=== PATIENT | female | born 1945 | race Caucasian/White ===

== ENCOUNTER 2018-03-25 08:42 | Outpatient (CLI) | payer MEDICARE, SELFPAY ==
--- NOTE | 2018-03-25 06:00 | DI.REPORT_ITS ---
SYMPTOM/DIAGNOSIS: LUMBAR SPONDYLOSIS C-ARM FLUOROSCOPY: 03/25 Fluoroscopy Time: 55.9s C-arm fluoroscopy was utilized by Dr. Fofana during reported lumbar medial branch block. Hard copies show needle placement and injection bilaterally at what appear to be the L3-4, L4-5 and L5-S1 levels.
[2018-03-25 08:55] VITALS: BP 151/81; PULSE 91; RESP 16; TEMP 36.6; O2SAT 97
[2018-03-25] MEDS: Omnipaque 240 MG/ML 50 ML BTL IJ (09:41)
--- NOTE | 2018-03-25 09:56 | PDOC.PAIN_ITS ---
Date of Service: 03/25/18 Time of Service: 09:54 Pain Clinic Procedure Note Lumbar/Sacral Medial Branch Blocks #1 to the bilateral L3-L5DR VICKEY HUMPHRIES has been referred [facility] for lumbar/ sacral medial branch blocks. COMMENTS: I did review Ms. Huggins's note. DX: Lumbar spondylosis without myelopathy Patient was interviewed and the medical record reviewed. There were no medical , pharmacologic, radiographic or other structural contraindications to attempting fluoroscopically guided local anesthetic lumbar/sacral medial branch blocks. Risks and expected side effects as well as potential benefit of the procedure were reviewed and voiced concerns addressed. The printed consent form was signed and witnessed. Standard time-out procedure was performed. Patient was placed in the prone position on the fluoroscopy table and automated blood pressure cuff and pulse oximeter applied. The skin entry points for approaching the anatomic target points of the segmental medial branches of bilateral L3-L5DR were identified with anfluoroscopy and marked. Following thorough Chlorhexadine preparation of the skin and draping and 1% lidocaine infiltration of the skin entry points and subcutaneous tissues, a 22 gauge spinal needle was placed under fluoroscopic guidance down on to the target point for each respective segmental medial branch.Position was confirmed in A/P, oblique and lateral views with 0.25ml of omnipaque 240. I next injected .5ml 0.5% Bupivacaine to each segmental branch. Vital signs were stable throughout the procedure and were as recorded in the docflowsheet by the nursing staff. Follow up plans and appointments were discussed and was instructed to keep careful note of how the usual pain was modified by these injections. Specifically was asked to keep a pain diary for the next 24 hours using a numeric pain scale of 0-10 and report these results at the follow-up visit. Post procedure instruction was given as documented in the nursing documentation and having met discharge criteria. Patient was [facility] from the [facility]. Based on the medial branches blocked today, if the patient has adequate relief and we are able to proceed to radiofrequency ablation, the treatment should result in the denervation of the bilateral L4-L5 and L5-S1 FACET JOINTS. We would expect to denervate a total of 4 facets during the radiofrequency ablation. COMMENTS: She will call back with her 1-4 hour post-procedure pain scores. CC: Fercho Ramos
[2018-03-25] MEDS: Bupivacaine 0.5% Pres-Free 30 ML VIAL IJ (10:04)
[2018-03-25 10:05] VITALS: BP 147/72; PULSE 82; RESP 12; O2SAT 99
== END 2018-03-25 08:43 ==
PROVIDERS: PCP Internal Medicine; Visit Provider Preventive Medicine Occupational Medicine
DX: M47.816 Spondylosis without myelopathy or radiculopathy, lumbar region (principal)
CPT/HCPCS: 64493; 64494; 72100; Q9967

== ENCOUNTER 2018-06-10 13:39 | Outpatient (REF) | payer MEDICARE, SELFPAY ==
[2018-06-10 19:01] LABS: HCT 40.6 % (36.0-46.0); HGB 13.1 g/dL (12.0-15.5); Mean Corp. HGB Concentration 32.3 g/dL (32.0-36.0); Mean Corpuscular Hemoglobin 32.6 pg (27.0-33.0); Platelet Count 289 x1000/uL (130-400); RBC 4.02 m/cumm (4.00-5.20); White Blood Cell Count 11.28 k/cumm (4.4-10.8)
[2018-06-10 19:32] LABS: Anion Gap 8.9 mmol/L (3-11); BUN 27 mg/dL (7-18); CO2 30.1 mmol/L (21.0-32.0); CREATININE 1.24 mg/dL (0.55-1.02); Calcium 9.2 mg/dL (8.5-10.1); Chloride 102 mmol/L (98-107); ESR 15 MM/HR (0-30); Estimated GFR 42.76 (mL/min/1.73m2); Glucose 123 mg/dL (70-100); LDL CHOLESTEROL 170 mg/dL (<100); Potassium 4.2 mmol/L (3.5-5.1); Sodium 141 mmol/L (136-145)
[2018-06-11 16:09] LABS: CRP, High Sensitivity 1.79 mg/L
== END 2018-06-10 13:59 ==
LOC: NCHCN 13:39
PROVIDERS: PCP Internal Medicine; Visit Provider Internal Medicine
DX: M65.839 Other synovitis and tenosynovitis, unspecified forearm (principal); M87.059 Idiopathic aseptic necrosis of unspecified femur; M35.3 Polymyalgia rheumatica; M54.41 Lumbago with sciatica, right side; E11.9 Type 2 diabetes mellitus without complications
CPT/HCPCS: 80048; 83721; 85027; 85652; 86141

== ENCOUNTER 2018-10-05 09:17 | Outpatient (CLI) | payer MEDICARE, SELFPAY ==
[2018-10-05 18:47] LABS: Abs Immature Grans 0.03 k/cumm (0.0-0.09); Absolute Basophil Count 0.04 k/cumm (0.0-0.2); Absolute Eosinophil Count 0.15 k/cumm (0.0-0.7); Absolute Monocyte Count 0.84 k/cumm (0.11-0.7); Basophils % 0.3; Eosinophils % 1.3; HCT 43.7 % (36.0-46.0); Immature Grans % 0.3; Lymphocytes % 13.7; Mean Corpuscular Hemoglobin 32.7 pg (27.0-33.0); Mean Corpuscular Volume 102.1 fL (80-95); Mean Platelet Volume 10.1 fL (8.0-11.0); Monocytes % 7.2; Neutrophils % 77.2; Platelet Count 281 x1000/uL (130-400); RBC 4.28 m/cumm (4.00-5.20); RBC Distribution Width 13.6 % (11.7-14.6); White Blood Cell Count 11.72 k/cumm (4.4-10.8)
[2018-10-05 18:48] LABS: Absolute Lymphocyte Count 1.61 k/cumm (1.2-3.4); Absolute Neutrophil Count 9.05 k/cumm (1.2-6.7)
[2018-10-05 19:14] LABS: ALT 19 U/L (12-78); AST 18 U/L (15-37); Albumin 3.7 g/dL (3.4-5.0); Alkaline Phosphatase 69 U/L (46-116); Anion Gap 11.6 mmol/L (3-11); BUN 28 mg/dL (7-18); Bilirubin, Total 0.6 mg/dL (0.2-1.0); C-Reactive Protein 0.13 mg/dL (0.0-0.3); CO2 29.4 mmol/L (21.0-32.0); CREATININE 1.29 mg/dL (0.55-1.02); Calcium 9.5 mg/dL (8.5-10.1); Chloride 101 mmol/L (98-107); Estimated GFR 40.74 (mL/min/1.73m2); Glucose 170 mg/dL (70-100); Potassium 3.7 mmol/L (3.5-5.1); Sodium 142 mmol/L (136-145)
[2018-10-05 19:20] LABS: ESR 14 MM/HR (0-30)
== END 2018-10-05 09:37 ==
PROVIDERS: PCP Internal Medicine; Visit Provider Internal Medicine Rheumatology
DX: M81.0 Age-related osteoporosis without current pathological fracture (principal); M31.5 Giant cell arteritis with polymyalgia rheumatica; Z79.52 Long term (current) use of systemic steroids
CPT/HCPCS: 80053; 85652; 85025; 86140

== ENCOUNTER 2018-12-06 13:18 | Outpatient (REF) | payer MEDICARE, SELFPAY ==
[2018-12-06 20:26] LABS: Albumin 3.8 g/dL (3.4-5.0); Anion Gap 10.9 mmol/L (3-11); BUN 24 mg/dL (7-18); CO2 28.1 mmol/L (21.0-32.0); CREATININE 1.29 mg/dL (0.55-1.02); Calcium 9.7 mg/dL (8.5-10.1); Chloride 101 mmol/L (98-107); Estimated GFR 40.74 (mL/min/1.73m2); Glucose 135 mg/dL (70-100); Magnesium 1.6 mg/dL (1.8-2.4); Potassium 4.2 mmol/L (3.5-5.1); Sodium 140 mmol/L (136-145)
[2018-12-06 20:41] LABS: Hemoglobin A1C 6.5 % (4.5-6.2); PHOSPHORUS 3.6 mg/dL (2.6-4.7)
[2018-12-11 02:39] LABS: 25-Hydroxy D Total 32 ng/mL; 25-Hydroxy D2 24 ng/mL; 25-Hydroxy D3 7.7 ng/mL
== END 2018-12-06 13:38 ==
LOC: NCHCN 13:18
PROVIDERS: PCP Internal Medicine; Visit Provider Internal Medicine
DX: E11.9 Type 2 diabetes mellitus without complications (principal); M81.0 Age-related osteoporosis without current pathological fracture; M31.5 Giant cell arteritis with polymyalgia rheumatica
CPT/HCPCS: 80069; 82306; 83036; 83735

== ENCOUNTER 2019-02-14 11:44 | Outpatient (REF) | payer MEDICARE, SELFPAY ==
[2019-02-14 20:13] LABS: C-Reactive Protein 0.33 mg/dL (0.0-0.3); Uric Acid 7.9 mg/dL (2.6-6.0)
[2019-02-15 12:48] LABS: ESR 11 MM/HR (0-30)
== END 2019-02-14 12:04 ==
LOC: LBN 11:44
PROVIDERS: PCP Internal Medicine; Visit Provider Internal Medicine Rheumatology
DX: Z79.899 Other long term (current) drug therapy (principal); M35.3 Polymyalgia rheumatica
CPT/HCPCS: 85652; 84550; 86140

== ENCOUNTER 2019-03-11 10:13 | Outpatient (CLI) | payer MEDICARE, SELFPAY ==
--- NOTE | 2019-03-11 09:53 | DI.RAD_ITS ---
SYMPTOM/DIAGNOSIS: LEFT SHOULDER JOINT PAIN, M25.512 LEFT SHOULDER: Five views. No acute fracture or dislocation is seen. There are mild degenerative changes at the acromioclavicular joint. A tiny calcification is seen adjacent to the greater tuberosity likely reflecting calcific tendinitis. IMPRESSION: Degenerative changes of the left shoulder.
== END 2019-03-11 10:33 ==
PROVIDERS: PCP Internal Medicine; Visit Provider Nurse Practitioner Family
DX: M25.512 Pain in left shoulder (principal); M19.012 Primary osteoarthritis, left shoulder; M75.32 Calcific tendinitis of left shoulder
CPT/HCPCS: 73030

== ENCOUNTER → 2019-04-04 08:01 | Outpatient (BNVA) | payer MEDICARE, SELFPAY | PROVIDERS: PCP Internal Medicine; Referring Provider Internal Medicine; Visit Provider Student in an Organized Health Care Education/Training Program | DX: M75.32 Calcific tendinitis of left shoulder (principal); E11.9 Type 2 diabetes mellitus without complications; I10 Essential (primary) hypertension | CPT/HCPCS: 99203; 99214 ==

== ENCOUNTER 2019-05-30 14:39 | Outpatient (REF) | payer MEDICARE, SELFPAY ==
[2019-05-30 19:40] LABS: HCT 39.2 % (36.0-46.0); HGB 12.4 g/dL (12.0-15.5); Mean Corp. HGB Concentration 31.6 g/dL (32.0-36.0); Mean Corpuscular Hemoglobin 31.6 pg (27.0-33.0); Platelet Count 320 x1000/uL (130-400); RBC 3.92 m/cumm (4.00-5.20); RBC Distribution Width 13.3 % (11.7-14.6); White Blood Cell Count 7.83 k/cumm (4.4-10.8)
[2019-05-30 19:48] LABS: Albumin 4.1 g/dL (3.4-5.0); Anion Gap 10.2 mmol/L (3-11); BUN 23 mg/dL (7-18); C-Reactive Protein 0.12 mg/dL (0.0-0.3); CO2 28.8 mmol/L (21.0-32.0); CREATININE 1.26 mg/dL (0.55-1.02); Calcium 9.4 mg/dL (8.5-10.1); Chloride 106 mmol/L (98-107); Estimated GFR 41.86 (mL/min/1.73m2); Glucose 106 mg/dL (70-100); PHOSPHORUS 3.3 mg/dL (2.6-4.7); Potassium 3.8 mmol/L (3.5-5.1); Sodium 145 mmol/L (136-145)
[2019-05-30 20:00] LABS: COMMENT (LAB VIEW ONLY) 196.95 mg/dL; Microalb ug/mg Crea 4.7 ug/mg Cr
[2019-05-30 20:15] LABS: ESR 15 mm/hr (0-30)
[2019-06-01 14:42] LABS: ANA Interpretation Negative (NEGAT)
[2019-06-02 14:37] LABS: SS-A Antibody 1.6 Units (<20); SS-B (La) Ab, IgG 1.1 Units (<20)
== END 2019-05-30 14:59 ==
LOC: NCHCN 14:39
PROVIDERS: PCP Internal Medicine; Visit Provider Internal Medicine
DX: E11.9 Type 2 diabetes mellitus without complications (principal); M31.5 Giant cell arteritis with polymyalgia rheumatica; G56.01 Carpal tunnel syndrome, right upper limb
CPT/HCPCS: 80069; 85027; 85652; 82043; 82570; 86038; 86140; 86235

== ENCOUNTER 2019-10-19 09:18 | Outpatient (REF) | payer MEDICARE, SELFPAY ==
[2019-10-19 20:52] LABS: ALT 18 U/L (14-59); Albumin 3.8 g/dL (3.4-5.0); Anion Gap 8.1 mmol/L (3-11); BUN 31 mg/dL (7-18); CO2 29.9 mmol/L (21.0-32.0); CREATININE 1.34 mg/dL (0.55-1.02); Calcium 8.8 mg/dL (8.5-10.1); Calculated LDL 195 mg/dL (<100); Chloride 104 mmol/L (98-107); Cholesterol 308 mg/dL (<200); Estimated GFR 38.88 (mL/min/1.73m2); Glucose 121 mg/dL (74-106); HDL Cholesterol 72 mg/dL (40-60); LDL CHOLESTEROL 177 mg/dL (<100); Potassium 3.6 mmol/L (3.5-5.1); Sodium 142 mmol/L (136-145); Triglyceride 208 mg/dL (<150)
[2019-10-19 21:16] LABS: Creatine Kinase 147 U/L (26-192); PHOSPHORUS 3.8 mg/dL (2.6-4.7)
== END 2019-10-19 09:38 ==
LOC: NCHCN 09:18
PROVIDERS: PCP Internal Medicine; Visit Provider Internal Medicine
DX: E78.2 Mixed hyperlipidemia (principal); D53.1 Other megaloblastic anemias, not elsewhere classified; E11.9 Type 2 diabetes mellitus without complications; Z79.899 Other long term (current) drug therapy
CPT/HCPCS: 80061; 80069; 82550; 83721; 84460

== ENCOUNTER 2020-03-07 18:14 | Outpatient (REF) | payer MEDICARE, SELFPAY | END 2020-03-07 18:34 | LOC: NCHCN 18:14 | PROVIDERS: PCP Internal Medicine; Visit Provider Nurse Practitioner Family | DX: R32 Unspecified urinary incontinence (principal); I10 Essential (primary) hypertension | CPT/HCPCS: 87086 ==

== ENCOUNTER 2020-03-08 10:37 | Outpatient (REF) | payer MEDICARE, SELFPAY ==
[2020-03-08 19:48] LABS: Anion Gap 12.2 mmol/L (3-11); BUN 35 mg/dL (7-18); CO2 22.8 mmol/L (21.0-32.0); CREATININE 1.41 mg/dL (0.55-1.02); Calcium 8.6 mg/dL (8.5-10.1); Chloride 102 mmol/L (98-107); Estimated GFR 36.66 (mL/min/1.73m2); Glucose 139 mg/dL (74-106); Potassium 4.1 mmol/L (3.5-5.1); Sodium 137 mmol/L (136-145)
== END 2020-03-08 10:57 ==
LOC: NCHCN 10:37
PROVIDERS: PCP Internal Medicine; Visit Provider Nurse Practitioner Family
DX: I10 Essential (primary) hypertension (principal)
CPT/HCPCS: 80048

== ENCOUNTER 2020-04-10 20:40 | Outpatient (REF) | payer MEDICARE, SELFPAY ==
[2020-04-10 19:45] LABS: Abs Immature Grans 0.03 10^3/uL (0.0-0.06); Absolute Basophil Count 0.04 10^3/uL (0.0-0.2); Absolute Eosinophil Count 0.06 10^3/uL (0.0-0.7); Absolute Lymphocyte Count 1.57 10^3/uL (1.2-3.4); Absolute Monocyte Count 0.71 10^3/uL (0.1-0.8); Absolute Neutrophil Count 5.28 10^3/uL (1.2-6.7); Basophils % 0.5; Eosinophils % 0.8; HCT 36.9 % (36.0-46.0); HGB 12.3 g/dL (11.2-15.7); Immature Grans % 0.4; Lymphocytes % 20.4; MCH 31.1 pg (27.0-33.0); MCHC 33.3 % (32.0-36.0); MCV 93.4 fL (80-95); Monocytes % 9.2; Neutrophils % 68.7; Nucleated RBC 0 %; Platelet Count 347 10^3/uL (130-400); RBC 3.95 10^6/uL (3.93-5.22); RDW 13.2 % (11.7-14.6); RDW-SD 45.1 fL; WBC 7.69 10^3/uL (4.4-10.8)
[2020-04-10 19:56] LABS: ALT 28 U/L (14-59); AST 28 U/L (15-37); Alkaline Phosphatase 68 U/L (46-116); Amylase 101 U/L (25-115); Anion Gap 11.1 mmol/L (3-11); BUN 22 mg/dL (7-18); Bilirubin, Total 0.6 mg/dL (0.2-1.0); CO2 25.9 mmol/L (21.0-32.0); CREATININE 1.33 mg/dL (0.55-1.02); Chloride 94 mmol/L (98-107); Estimated GFR 39.22 (mL/min/1.73m2); Glucose 111 mg/dL (74-106); Lipase 214 U/L (73-393); Potassium 3.7 mmol/L (3.5-5.1); Sodium 131 mmol/L (136-145); Total Protein 6.7 g/dL (6.4-8.2)
== END 2020-04-10 21:00 ==
LOC: NCHCN 20:40
PROVIDERS: PCP Internal Medicine; Visit Provider Physician Assistant
DX: R10.811 Right upper quadrant abdominal tenderness (principal); R63.4 Abnormal weight loss; R11.2 Nausea with vomiting, unspecified; R82.998 Other abnormal findings in urine
CPT/HCPCS: 80053; 83690; 82150; 85025; 87086

== ENCOUNTER 2020-05-31 09:31 | Outpatient (REF) | payer MEDICARE, SELFPAY ==
[2020-05-31 19:22] LABS: HCT 38.6 % (36.0-46.0); HGB 12.1 g/dL (11.2-15.7); MCH 31.6 pg (27.0-33.0); MCHC 31.3 % (32.0-36.0); MCV 100.8 fL (80-95); MPV 10.3 fL (8.0-11.0); Platelet Count 298 10^3/uL (130-400); RBC 3.83 10^6/uL (3.93-5.22); RDW 13.2 % (11.7-14.6); RDW-SD 49.2 fL; WBC 7.33 10^3/uL (4.4-10.8)
[2020-05-31 19:55] LABS: Hemoglobin A1C 6.2 % (<5.7)
[2020-05-31 19:56] LABS: Anion Gap 6.6 mmol/L (3-11); BUN 18 mg/dL (7-18); CO2 28.4 mmol/L (21.0-32.0); CREATININE 1.08 mg/dL (0.55-1.02); Calcium 8.9 mg/dL (8.5-10.1); Chloride 106 mmol/L (98-107); Estimated GFR 49.87 (mL/min/1.73m2); Glucose 98 mg/dL (74-106); Potassium 3.5 mmol/L (3.5-5.1); Sodium 141 mmol/L (136-145)
== END 2020-05-31 09:51 ==
LOC: NCHCN 09:31
PROVIDERS: PCP Internal Medicine; Visit Provider Internal Medicine
DX: E87.1 Hypo-osmolality and hyponatremia (principal); K29.70 Gastritis, unspecified, without bleeding; E11.9 Type 2 diabetes mellitus without complications
CPT/HCPCS: 80048; 85027; 83036

== ENCOUNTER 2020-08-29 20:53 | Outpatient (REF) | payer MEDICARE, SELFPAY ==
[2020-08-30 17:39] LABS: COVID-19 RT-PCR UVMMC Result Negative (Negative)
== END 2020-08-29 21:13 ==
LOC: NCHCN 20:53
PROVIDERS: PCP Internal Medicine; Visit Provider Internal Medicine
DX: Z20.822 Contact with and (suspected) exposure to COVID-19 (principal)
CPT/HCPCS: U0003

== ENCOUNTER 2020-11-21 17:30 | Outpatient (REF) | payer MEDICARE, SELFPAY ==
[2020-11-21 19:43] LABS: HCT 37.3 % (36.0-46.0); HGB 12.1 g/dL (11.2-15.7); MCHC 32.4 % (32.0-36.0); MCV 98.7 fL (80-95); MPV 9.5 fL (8.0-11.0); Platelet Count 275 10^3/uL (130-400); RBC 3.78 10^6/uL (3.93-5.22); RDW 12.9 % (11.7-14.6); RDW-SD 46.8 fL
[2020-11-21 19:46] LABS: ESR 3 mm//hr (0-30)
[2020-11-21 19:56] LABS: Anion Gap 9.5 mmol/L (3-11); BUN 28 mg/dL (7-18); CO2 26.5 mmol/L (21.0-32.0); CREATININE 1.2 mg/dL (0.55-1.02); Calcium 9.4 mg/dL (8.5-10.1); Chloride 106 mmol/L (98-107); Estimated GFR 44.04 (mL/min/1.73m2); Glucose 105 mg/dL (74-106); Magnesium 1.8 mg/dL (1.8-2.4); Potassium 3.7 mmol/L (3.5-5.1); Sodium 142 mmol/L (136-145)
[2020-11-21 20:07] LABS: C-Reactive Protein 0.46 mg/dL (0.0-0.3); PHOSPHORUS 4.2 mg/dL (2.6-4.7)
== END 2020-11-21 17:31 | disposition home or self-care (01) ==
LOC: NCHCN 17:30
PROVIDERS: PCP Internal Medicine; Visit Provider Internal Medicine
DX: M31.5 Giant cell arteritis with polymyalgia rheumatica (principal); R06.00 Dyspnea, unspecified; I10 Essential (primary) hypertension
CPT/HCPCS: 80069; 85027; 85652; 83735; 86140

== ENCOUNTER 2022-03-06 11:09 | Outpatient (REF) | payer MEDICARE, SELFPAY ==
[2022-03-06 19:05] LABS: ESR 2 mm/hr (0-30)
[2022-03-06 19:06] LABS: Abs Immature Grans 0.02 10^3/uL (0.0-0.06); Absolute Basophil Count 0.06 10^3/uL (0.0-0.2); Absolute Eosinophil Count 0.14 10^3/uL (0.0-0.7); Absolute Lymphocyte Count 1.45 10^3/uL (1.2-3.4); Absolute Monocyte Count 0.32 10^3/uL (0.1-0.8); Absolute Neutrophil Count 6.54 10^3/uL (1.2-6.7); Basophils % 0.7; Eosinophils % 1.6; HGB 11.7 g/dL (11.2-15.7); Immature Grans % 0.2; MCH 32.2 pg (27.0-33.0); MCHC 33.4 % (32.0-36.0); MCV 96 fL (80-95); Monocytes % 3.8; Neutrophils % 76.7; Platelet Count 260 10^3/uL (130-400); RBC 3.63 10^6/uL (3.93-5.22); RDW 12.3 % (11.7-14.6); RDW-SD 44.3 fL; WBC 8.53 10^3/uL (4.4-10.8)
[2022-03-06 19:20] LABS: Anion Gap 6.2 mmol/L (3-11); BUN 24 mg/dL (7-18); CO2 27.8 mmol/L (21.0-32.0); CREATININE 1.4 mg/dL (0.55-1.02); Chloride 102 mmol/L (98-107); Estimated GFR 36.76 (mL/min/1.73m2); Glucose 120 mg/dL (74-106); Magnesium 1.8 mg/dL (1.8-2.4); PHOSPHORUS 3.1 mg/dL (2.6-4.7); Sodium 136 mmol/L (136-145)
== END 2022-03-06 11:10 | disposition home or self-care (01) ==
LOC: NCHCN 11:09
PROVIDERS: PCP Internal Medicine; Visit Provider Internal Medicine
DX: M31.5 Giant cell arteritis with polymyalgia rheumatica (principal); E11.9 Type 2 diabetes mellitus without complications; I10 Essential (primary) hypertension
CPT/HCPCS: 80069; 85652; 83735; 85025

== ENCOUNTER 2022-04-18 20:26 | Outpatient (REF) | payer MEDICARE, SELFPAY ==
[2022-04-18 19:24] LABS: HCT 34.1 % (36.0-46.0); HGB 11.1 g/dL (11.2-15.7); MCHC 32.6 % (32.0-36.0); MCV 98 fL (80-95); MPV 9.1 fL (8.0-11.0); Platelet Count 314 10^3/uL (130-400); RBC 3.47 10^6/uL (3.93-5.22); RDW 12.7 % (11.7-14.6); RDW-SD 45.7 fL; WBC 7.05 10^3/uL (4.4-10.8)
[2022-04-18 19:27] LABS: ESR < 1 mm/hr (0-30)
[2022-04-18 19:47] LABS: ALT 24 U/L (14-59); AST 30 U/L (15-37); Albumin 4.3 g/dL (3.4-5.0); Alkaline Phosphatase 84 U/L (46-116); Bilirubin, Direct 0.1 mg/dL (0.0-0.2); Bilirubin, Total 0.4 mg/dL (0.2-1.0); Total Protein 7.2 g/dL (6.4-8.2)
[2022-04-18 19:48] LABS: C-Reactive Protein < 0.05 mg/dL (0.0-0.3)
[2022-04-19 22:28] LABS: Rheumatoid Factor <8.6 IU/mL (<12.0)
[2022-04-20 09:45] LABS: Cyclic Citrullinated Peptide <2.5 U/mL (<5.0)
[2022-04-21 05:09] LABS: Vitamin D 25 Total 17.6 ng/mL (30-100)
== END 2022-04-18 20:27 | disposition home or self-care (01) ==
LOC: NCHCN 20:26
PROVIDERS: PCP Internal Medicine; Visit Provider Internal Medicine
DX: M06.9 Rheumatoid arthritis, unspecified (principal); R73.03 Prediabetes
CPT/HCPCS: 80076; 82306; 85027; 85652; 86200; 86140; 86431

== ENCOUNTER 2022-08-25 12:04 | Outpatient (REF) | payer MEDICARE, SELFPAY ==
[2022-08-25 19:45] LABS: Calculated LDL 90 mg/dL (<100); Cholesterol 231 mg/dL (<200); HDL Cholesterol 120 mg/dL (40-60); Triglyceride 107 mg/dL (<150)
== END 2022-08-25 12:05 | disposition home or self-care (01) ==
LOC: NCHCN 12:04
PROVIDERS: PCP Internal Medicine; Visit Provider Internal Medicine
DX: E78.2 Mixed hyperlipidemia (principal)
CPT/HCPCS: 80061

== ENCOUNTER 2022-09-11 16:14 | Outpatient (REF) | payer MEDICARE, SELFPAY ==
[2022-09-11 18:48] LABS: Bilirubin Negative (Negative); Blood Trace-intact (Negative); Clarity Clear (Clear); Glucose Negative (Negative); Ketones Negative (Negative); Leukocyte Esterase Negative (Negative); Nitrite Negative (Negative); Specific Gravity 1.025 (1.005-1.025); Urobilinogen 0.2 EU/dL (Up TO 0.2)
[2022-09-11 18:59] LABS: ALT 25 U/L (14-59); AST 30 U/L (15-37); Albumin 4.1 g/dL (3.4-5.0); Alkaline Phosphatase 68 U/L (46-116); Anion Gap 10.2 mmol/L (3-11); BUN 22 mg/dL (7-18); Bilirubin, Total 0.4 mg/dL (0.2-1.0); CO2 25.8 mmol/L (21.0-32.0); CREATININE 1.2 mg/dL (0.55-1.02); Calcium 9.7 mg/dL (8.5-10.1); Calculated LDL 91 mg/dL (<100); Chloride 106 mmol/L (98-107); Cholesterol 244 mg/dL (<200); Estimated GFR 47.21 (mL/min/1.73m2); Glucose 130 mg/dL (74-106); HDL Cholesterol 139 mg/dL (40-60); Potassium 4.1 mmol/L (3.5-5.1); Sodium 142 mmol/L (136-145); Total Protein 6.9 g/dL (6.4-8.2); Triglyceride 74 mg/dL (<150)
[2022-09-11 19:01] LABS: Bacteria Rare HPF (Negative); C & S Indicated? No; COMMENT (LAB VIEW ONLY) 62.09 mg/dL; Casts Negative LPF (Negative); Crystals Negative HPF (Negative); Epithelial Cells Rare HPF (Negative); Microalb ug/mg Crea 11.3 ug/mg Cr; Mucus Negative (Negative); WBC Negative HPF (0-5)
[2022-09-11 20:09] LABS: Creatine Kinase 183 U/L (26-192); NT-proBNP 353 pg/mL (<300)
[2022-09-11 20:21] LABS: C-Reactive Protein < 0.05 mg/dL (0.0-0.3)
== END 2022-09-11 16:15 | disposition home or self-care (01) ==
LOC: NCHCN 16:14
PROVIDERS: PCP Internal Medicine; Visit Provider Internal Medicine
DX: I63.9 Cerebral infarction, unspecified (principal); R60.0 Localized edema; R42 Dizziness and giddiness; M31.5 Giant cell arteritis with polymyalgia rheumatica
CPT/HCPCS: 80053; 80061; 82550; 81003; 81015; 82043; 82570; 83880; 86140

== ENCOUNTER 2022-10-24 13:01 | Outpatient (REF) | payer MEDICARE, SELFPAY ==
[2022-10-24 20:48] LABS: FREE T4 0.92 ng/dL (0.76-1.46); TSH 1.16 uIU/mL (0.36-3.74)
[2022-10-24 21:42] LABS: Vitamin B12 371 pg/mL (193-986)
== END 2022-10-24 13:02 | disposition home or self-care (01) ==
LOC: NCHCN 13:01
PROVIDERS: PCP Internal Medicine; Visit Provider Internal Medicine
DX: F03.90 Unspecified dementia, unspecified severity, without behavioral disturbance, psychotic disturbance, mood disturbance, and anxiety (principal)
CPT/HCPCS: 82607; 84439; 84443

== ENCOUNTER 2023-04-23 15:47 | Outpatient (REF) | payer MEDICARE, SELFPAY ==
[2023-04-23 19:06] LABS: Abs Immature Grans 0.04 10^3/uL (0.0-0.06); Absolute Basophil Count 0.03 10^3/uL (0.0-0.2); Absolute Eosinophil Count 0.03 10^3/uL (0.0-0.7); Absolute Lymphocyte Count 1.33 10^3/uL (1.2-3.4); Absolute Monocyte Count 0.72 10^3/uL (0.1-0.8); Absolute Neutrophil Count 8.41 10^3/uL (1.2-6.7); Basophils % 0.3; ESR 3 mm/hr (0-30); Eosinophils % 0.3; HCT 36.7 % (36.0-46.0); HGB 12.7 g/dL (11.2-15.7); Immature Grans % 0.4; Lymphocytes % 12.6; MCH 32.2 pg (27.0-33.0); MCHC 34.6 % (32.0-36.0); MCV 93 fL (80-95); MPV 9.2 fL (8.0-11.0); Monocytes % 6.8; Neutrophils % 79.6; Platelet Count 293 10^3/uL (130-400); RBC 3.94 10^6/uL (3.93-5.22); RDW 12.2 % (11.7-14.6); WBC 10.56 10^3/uL (4.4-10.8)
[2023-04-23 19:20] LABS: ALT 21 U/L (14-59); AST 28 U/L (15-37); Albumin 4.1 g/dL (3.4-5.0); Alkaline Phosphatase 56 U/L (46-116); BUN 21 mg/dL (7-18); Bilirubin, Total 0.7 mg/dL (0.2-1.0); C-Reactive Protein 0.11 mg/dL (0.0-0.3); CREATININE 1.2 mg/dL (0.55-1.02); Calcium 9.6 mg/dL (8.5-10.1); Chloride 88 mmol/L (98-107); Estimated GFR 47.21 (mL/min/1.73m2); Glucose 114 mg/dL (74-106); Lipase 38 U/L (16-77); Potassium 4.3 mmol/L (3.5-5.1); Total Protein 7.1 g/dL (6.4-8.2)
[2023-04-23 19:27] LABS: Sodium 123 mmol/L (136-145)
== END 2023-04-23 15:48 | disposition home or self-care (01) ==
LOC: NCHCN 15:47
PROVIDERS: PCP Internal Medicine; Visit Provider Internal Medicine
DX: M06.9 Rheumatoid arthritis, unspecified (principal); I10 Essential (primary) hypertension; R11.0 Nausea; R79.89 Other specified abnormal findings of blood chemistry
CPT/HCPCS: 80053; 83690; 85652; 85025; 86140

== ENCOUNTER 2023-04-24 13:45 | Outpatient (REF) | payer MEDICARE, SELFPAY ==
[2023-04-24 19:14] LABS: Creatinine,Urine 145.22 mg/dL; Sodium, Urine 45 mmol/L
== END 2023-04-24 13:46 | disposition home or self-care (01) ==
LOC: NCHCN 13:45
PROVIDERS: PCP Internal Medicine; Visit Provider Internal Medicine
DX: E87.1 Hypo-osmolality and hyponatremia (principal); R30.0 Dysuria
CPT/HCPCS: 82565; 84300; 87086

== ENCOUNTER 2023-04-29 09:08 | Outpatient (REF) | payer MEDICARE, SELFPAY ==
[2023-04-29 20:55] LABS: Anion Gap 6.2 mmol/L (3-11); BUN 16 mg/dL (7-18); CO2 30.8 mmol/L (21.0-32.0); CREATININE 1.3 mg/dL (0.55-1.02); Calcium 9.2 mg/dL (8.5-10.1); Chloride 91 mmol/L (98-107); Estimated GFR 42.88 (mL/min/1.73m2); Glucose 112 mg/dL (74-106); Sodium 128 mmol/L (136-145)
== END 2023-04-29 09:09 | disposition home or self-care (01) ==
LOC: NCHCN 09:08
PROVIDERS: PCP Internal Medicine; Visit Provider Internal Medicine
DX: E87.1 Hypo-osmolality and hyponatremia (principal); I10 Essential (primary) hypertension
CPT/HCPCS: 80048

== ENCOUNTER 2023-10-01 14:53 | Outpatient (REF) | payer MEDICARE, SELFPAY ==
[2023-10-01 19:00] LABS: Anion Gap 7.1 mmol/L (3-11); BUN 11 mg/dL (7-18); CO2 29.9 mmol/L (21.0-32.0); CREATININE 1.1 mg/dL (0.55-1.02); Calcium 9.2 mg/dL (8.5-10.1); Chloride 100 mmol/L (98-107); Estimated GFR 52.08 (mL/min/1.73m2); Glucose 119 mg/dL (74-106); Potassium 3.2 mmol/L (3.5-5.1); Sodium 137 mmol/L (136-145)
[2023-10-01 19:23] LABS: Vitamin D 25 Total 16.5 ng/mL (30-100)
== END 2023-10-01 14:54 | disposition home or self-care (01) ==
LOC: NCHCN 14:53
PROVIDERS: PCP Internal Medicine; Referring Provider Internal Medicine; Visit Provider Internal Medicine
DX: M81.0 Age-related osteoporosis without current pathological fracture (principal)
CPT/HCPCS: 80048; 82306; 84080

== ENCOUNTER 2023-10-28 20:07 | Outpatient (REF) | payer MEDICARE, SELFPAY ==
[2023-10-28 20:33] LABS: Anion Gap 11.3 mmol/L (3-11); BUN 19 mg/dL (7-18); CO2 25.7 mmol/L (21.0-32.0); CREATININE 1.2 mg/dL (0.55-1.02); Calcium 9.4 mg/dL (8.5-10.1); Chloride 103 mmol/L (98-107); Estimated GFR 46.91 (mL/min/1.73m2); Glucose 140 mg/dL (74-106); Potassium 3.3 mmol/L (3.5-5.1); Sodium 140 mmol/L (136-145)
== END 2023-10-28 20:08 | disposition home or self-care (01) ==
LOC: NCHCN 20:07
PROVIDERS: PCP Internal Medicine; Visit Provider Internal Medicine
DX: E87.6 Hypokalemia (principal)
CPT/HCPCS: 80048

== ENCOUNTER 2024-04-14 16:08 | Outpatient (REF) | payer MEDICARE, SELFPAY ==
[2024-04-14 19:48] LABS: ESR 3 mm/hr (0-30)
[2024-04-14 20:12] LABS: Anion Gap 9.8 mmol/L (3-11); BUN 14 mg/dL (7-18); CO2 27.2 mmol/L (21.0-32.0); CREATININE 1.2 mg/dL (0.55-1.02); Calcium 9.4 mg/dL (8.5-10.1); Chloride 100 mmol/L (98-107); Estimated GFR 46.91 (mL/min/1.73m2); Glucose 113 mg/dL (74-106); Sodium 137 mmol/L (136-145)
[2024-04-14 20:13] LABS: C-Reactive Protein < 0.50 mg/dL (<or=0.5)
== END 2024-04-14 16:09 | disposition home or self-care (01) ==
LOC: NCHCN 16:08
PROVIDERS: PCP Internal Medicine; Visit Provider Internal Medicine
DX: M31.5 Giant cell arteritis with polymyalgia rheumatica (principal); E87.6 Hypokalemia
CPT/HCPCS: 80048; 85652; 86140

== ENCOUNTER 2024-04-28 20:51 | Outpatient (REF) | payer MEDICARE, SELFPAY ==
--- NOTE | 2024-04-28 15:00 | SKI_PTH ---
PATIENT: Amy Parra LOC: [facility] U#:[id number] AGE/SX: 78/F ROOM: RE04/28/[address]: Fercho Ramos : 1945 BED: DIS: 04/28/2024 SPEC #: [id number] RECD: 04/29/24 12:22 STATUS: FRIEDA PORTILLO #: [id number] DELONTE: 04/28/24 15:[address]: Fercho Ramos DEPT: Surgical Specimen RECD BY: Sandra Drew Tissues: 1 - SKIN BIOPSY(SHAVE/PUNCH) Procedures: SKIN LEVEL 4 Comments: [id number]
== END 2024-04-28 20:52 | disposition home or self-care (01) ==
LOC: NCHCN 20:51
PROVIDERS: PCP Internal Medicine; Visit Provider Internal Medicine
DX: M31.5 Giant cell arteritis with polymyalgia rheumatica (principal); E87.6 Hypokalemia
CPT/HCPCS: 88305

== ENCOUNTER 2024-05-27 12:21 | Outpatient (REF) | payer MEDICARE, SELFPAY ==
[2024-05-27 18:38] LABS: Anion Gap 11.3 mmol/L (3-11); BUN 25 mg/dL (7-18); CO2 26.7 mmol/L (21.0-32.0); CREATININE 1.4 mg/dL (0.55-1.02); Calcium 9.8 mg/dL (8.5-10.1); Chloride 104 mmol/L (98-107); Estimated GFR 38.99 (mL/min/1.73m2); Glucose 132 mg/dL (74-106); Potassium 4.3 mmol/L (3.5-5.1); Sodium 142 mmol/L (136-145)
== END 2024-05-27 12:22 | disposition home or self-care (01) ==
LOC: NCHCN 12:21
PROVIDERS: PCP Internal Medicine; Visit Provider Internal Medicine
DX: I10 Essential (primary) hypertension (principal)
CPT/HCPCS: 80048

== ENCOUNTER 2024-07-28 20:17 | Outpatient (REF) | payer MEDICARE, SELFPAY ==
[2024-07-28 19:57] LABS: ESR 6 mm/hr (0-30)
[2024-07-28 19:59] LABS: C-Reactive Protein < 0.50 mg/dL (<or=0.5)
== END 2024-07-28 20:18 | disposition home or self-care (01) ==
LOC: NCHCN 20:17
PROVIDERS: PCP Internal Medicine; Visit Provider Internal Medicine
DX: M31.5 Giant cell arteritis with polymyalgia rheumatica (principal)
CPT/HCPCS: 85652; 86140

== ENCOUNTER 2024-12-29 21:33 | Outpatient (REF) | payer MEDICARE, SELFPAY ==
[2024-12-29 21:38] LABS: Absolute Basophil Count 0.02 10^3/uL (0.0-0.2); Absolute Eosinophil Count 0.04 10^3/uL (0.0-0.7); Absolute Lymphocyte Count 1.95 10^3/uL (1.2-3.4); Absolute Monocyte Count 0.49 10^3/uL (0.1-0.8); Absolute Neutrophil Count 4.34 10^3/uL (1.2-6.7); Basophils % 0.3 %; Eosinophils % 0.6 %; HCT 37.8 % (36.0-46.0); HGB 12.3 g/dL (11.2-15.7); Immature Grans % 1.4 %; Lymphocytes % 28.1 %; MCH 33.2 pg (27.0-33.0); MCHC 32.5 % (32.0-36.0); MCV 102 fL (80-95); MPV 9.8 fL (8.0-11.0); Monocytes % 7.1 %; Neutrophils % 62.5 %; Platelet Count 200 10^3/uL (130-400); RBC 3.71 10^6/uL (3.93-5.22); RDW 14.6 % (11.7-14.6); RDW-SD 55.4 fL; WBC 6.94 10^3/uL (4.4-10.8)
[2024-12-29 21:50] LABS: ALT 38 U/L (14-59); AST 29 U/L (15-37); Albumin 4.1 g/dL (3.4-5.0); Alkaline Phosphatase 77 U/L (46-116); Anion Gap 8.9 mmol/L (3-11); BUN 26 mg/dL (7-18); Bilirubin, Total 0.8 mg/dL (0.2-1.0); CO2 28.1 mmol/L (21.0-32.0); CREATININE 1.2 mg/dL (0.55-1.02); Calcium 9.3 mg/dL (8.5-10.1); Calculated LDL 142 mg/dL (<100); Chloride 104 mmol/L (98-107); Cholesterol 289 mg/dL (<200); Estimated GFR 46.62 (mL/min/1.73m2); Glucose 117 mg/dL (74-106); HDL Cholesterol 118 mg/dL (>or=50); Potassium 4.2 mmol/L (3.5-5.1); Sodium 141 mmol/L (136-145); Total Protein 6.6 g/dL (6.4-8.2); Triglyceride 148 mg/dL (<150)
== END 2024-12-29 21:34 | disposition home or self-care (01) ==
LOC: LBN 21:33
PROVIDERS: PCP Internal Medicine; Visit Provider Student in an Organized Health Care Education/Training Program
DX: M31.6 Other giant cell arteritis (principal)
CPT/HCPCS: 80053; 80061; 85025

== ENCOUNTER 2025-02-22 11:52 | Outpatient (REF) | payer MEDICARE, SELFPAY ==
[2025-02-22 23:11] LABS: ALT 30 U/L (14-59); AST 20 U/L (15-37); Albumin 4.2 g/dL (3.4-5.0); Alkaline Phosphatase 97 U/L (46-116); Bilirubin, Direct 0.2 mg/dL (0.0-0.2); Bilirubin, Total 0.4 mg/dL (0.2-1.0); Total Protein 6.4 g/dL (6.4-8.2)
== END 2025-02-22 11:53 | disposition home or self-care (01) ==
LOC: NCHCN 11:52
PROVIDERS: Nurse Practitioner Family; PCP Internal Medicine; Visit Provider Internal Medicine
DX: L29.9 Pruritus, unspecified (principal)
CPT/HCPCS: 80076

== ENCOUNTER 2025-02-24 12:11 | Outpatient (REF) | payer MEDICARE, SELFPAY ==
[2025-02-24 22:37] LABS: Anion Gap 9.9 mmol/L (3-11); BUN 24 mg/dL (7-18); CO2 27.1 mmol/L (21.0-32.0); Calcium 9.4 mg/dL (8.5-10.1); Chloride 104 mmol/L (98-107); Estimated GFR 51.75 (mL/min/1.73m2); Glucose 135 mg/dL (74-106); Potassium 4.0 mmol/L (3.5-5.1); Sodium 141 mmol/L (136-145); Vitamin D 25 Total 37 ng/mL (30-100)
[2025-02-28 11:08] LABS: Beta-CrossLaps (B-CTx) 701 pg/mL
[2025-03-06 16:44] LABS: Procollagen I IntactN-Terminal 89 mcg/L
== END 2025-02-24 12:12 | disposition home or self-care (01) ==
LOC: LBN 12:11
PROVIDERS: PCP Internal Medicine; Visit Provider Internal Medicine
DX: M81.0 Age-related osteoporosis without current pathological fracture (principal)
CPT/HCPCS: 80048; 82306; 82523; 83519; 84080